=== PATIENT | male | born 1965 | race Caucasian/White ===

== ENCOUNTER 2020-08-17 08:38 | Day surgery (SDCO) | payer OTHER ==
[~2020-08-17 08:38] MED LIST: WARFARIN SODIUM4 MG PO; WARFARIN SODIUM6 MG PO
[2020-08-17] MEDS ORDERED: LOVENOX120 MG/0.8 SQ (09:36)
[2020-08-17 10:07] LABS: HGB 15.4 g/dl (13.2-18.0); MCH 29.8 pg (25.0-31.0); MCHC 34.2 g/dL (32.0-36.0); MPV 10.1 fL (6.0-9.5); RBC 5.17 M/uL (4.70-6.00); RDW 12.8 % (11.5-14.0)
[2020-08-17 10:34] LABS: INR 1.12 (0.9-1.2); PROTHROMBIN TIME 13.7 SECONDS (11.4-13.6)
[2020-08-17 10:35] LABS: PTT 41.9 SECONDS (22.2-34.7)
[2020-08-17 10:40] LABS: ALBUMIN 3.9 g/dL (3.4-5.0); BILIRUBIN - TOTAL 0.3 mg/dL (0.2-1.0); BUN/CREAT RATIO (CALC) 13.8 RATIO; CREATININE 0.94 mg/dL (0.67-1.17); GLOBULIN (CALCULATION) 4.3 g/dL; POTASSIUM 3.7 mmol/L (3.5-5.1); TOTAL PROTEIN 8.2 g/dL (6.4-8.2)
--- NOTE | 2020-08-17 18:03 | NUR ---
PT ADMITTED VIA STRETCHER TO [facility] 3. THOMAS FROM [facility] GAVE REPORT. LR @100. 20 IN RIGHT HAND. HOOKED UP TELEMETRY FOR MONITIORING.
--- NOTE | 2020-08-17 19:01 | NUR ---
NOTIFIED OF PT 6 RUN V TACH NON SUSTAINED AND NO NEW ORDERS GIVEN
[2020-08-18 04:28] LABS: BASOPHIL 0.3 % (0-2); EOSINOPHIL 1.5 % (0-5); HCT 40.4 % (42.0-52.0); HGB 13.7 g/dl (13.2-18.0); LYMPHOCYTE 24.1 % (15-48); MCH 29.8 pg (25.0-31.0); MCHC 33.9 g/dL (32.0-36.0); MONOCYTE 10.5 % (0-12); MPV 10.3 fL (6.0-9.5); NEUTROPHIL 63.3 % (41-80); NRBC 0; PLT 146 K/uL (150-400); RBC 4.59 M/uL (4.70-6.00); RDW 13.1 % (11.5-14.0); WBC 6.6 K/uL (4.0-10.5)
[2020-08-18 04:43] LABS: BUN/CREAT RATIO (CALC) 11.5 RATIO; CREATININE 0.87 mg/dL (0.67-1.17); MAGNESIUM 1.8 mg/dL (1.8-2.4); POTASSIUM 3.6 mmol/L (3.5-5.1)
== END 2020-08-18 10:45 | disposition home or self-care (01) ==
LOC: FAS 08:38 → FTCU 16:18
PROVIDERS: Surgery; ADMIT Internal Medicine
DX: K80.10 Calculus of gallbladder with chronic cholecystitis without obstruction (principal); K66.0 Peritoneal adhesions (postprocedural) (postinfection); I44.7 Left bundle-branch block, unspecified; I35.0 Nonrheumatic aortic (valve) stenosis; I48.91 Unspecified atrial fibrillation; Z79.01 Long term (current) use of anticoagulants; Z95.0 Presence of cardiac pacemaker; Z95.2 Presence of prosthetic heart valve
CPT/HCPCS: 36415; 74300; 80048; 80053; 83735; 84484; 85025; 85610; 85730; 93005; 94010; C1758; G0378; J0690; J1170; J1650; J1885; J2250; J2405; J2704; J2710; J3010; J7120; Q9967